=== PATIENT | male | born 1945 | race African-American/Black ===

== ENCOUNTER 2017-09-24 06:02 | Emergency (ER) | payer MEDICARE, OTHER ==
[~2017-09-24] VITALS: Ht 182.9 cm; Wt 115.0 kg
[~2017-09-24 06:02] MED LIST: AMLO-512 PO; ASPI81 PO; ATOR40TA28 PO; CARV25 PO; FISH OIL PO; ISOS30TA6 PO; KDUR10 PO; LORA1TAB3 PO; LOSA50TA37 PO; PANT40TA25 PO; PRAS10TA6 PO; SPIR50 PO
[2017-09-24 06:14] VITALS: BP 149/77
[2017-09-24] MEDS ORDERED: CHOL50004 PO (06:19)
[2017-09-24] MEDS ORDERED: GLIP2.5T17 PO (06:19)
[2017-09-24] MEDS ORDERED: FERR-89 PO (06:19)
[2017-09-24] MEDS ORDERED: FURO40TA5 PO (06:19)
[2017-09-24] MEDS ORDERED: MAGN250T9 PO (06:19)
[2017-09-24 06:30] LABS: GLUCOSE,POINT OF CARE 150 MG/DL (70-110)
[2017-09-24] MEDS ORDERED: SILVER SULFADIAZINE 1% 25 GM CREAM TP ONE (09:15)
== END 2017-09-24 09:34 | disposition home or self-care (01) ==
LOC: EMS 06:03
DX: L98.9 Disorder of the skin and subcutaneous tissue, unspecified (principal); I10 Essential (primary) hypertension; E11.9 Type 2 diabetes mellitus without complications; E78.00 Pure hypercholesterolemia, unspecified
CPT/HCPCS: 99283

== ENCOUNTER 2018-01-09 09:24 | Emergency (ER) | payer MEDICARE, OTHER ==
[~2018-01-09] VITALS: Ht 182.9 cm; Wt 115.0 kg
[~2018-01-09 09:24] MED LIST changes: -AMLO-512 PO; +CHOL50004 PO; +FERR-89 PO; +FURO40TA5 PO; +GLIP2.5T17 PO; +LOSA50TA25 PO; -LOSA50TA37 PO; +MAGN250T9 PO; -PRAS10TA6 PO; -SPIR50 PO
[2018-01-09 09:35] LABS: GLUCOSE,POINT OF CARE 117 MG/DL (70-110)
[2018-01-09 09:42] VITALS: BP 157/80
== END 2018-01-09 10:52 | disposition home or self-care (01) ==
LOC: EMS 09:25
DX: J40 Bronchitis, not specified as acute or chronic (principal); I10 Essential (primary) hypertension; E11.9 Type 2 diabetes mellitus without complications; E78.00 Pure hypercholesterolemia, unspecified; G47.30 Sleep apnea, unspecified; Z79.82 Long term (current) use of aspirin; Z79.84 Long term (current) use of oral hypoglycemic drugs; Z79.899 Other long term (current) drug therapy
CPT/HCPCS: 99284

== ENCOUNTER 2018-01-12 08:37 | Emergency (ER) | payer MEDICARE, OTHER ==
[~2018-01-12] VITALS: Ht 182.9 cm; Wt 115.5 kg
[2018-01-12 08:54] LABS: GLUCOSE,POINT OF CARE 118 MG/DL (70-110)
[2018-01-12] MEDS ORDERED: IPRATROPIUM BROMIDE 0.5 MG/2.5 ML NEB SOLUTION NEB ONE (09:45)
[2018-01-12] MEDS ORDERED: ALBUTEROL SULFATE 2.5 MG/0.5 ML NEB SOLUTION NEB ONE (09:45)
[2018-01-12] MEDS ORDERED: FOLI1TAB15 PO (10:03)
[2018-01-12] MEDS ORDERED: 0.9% SODIUM CHLORIDE 5 ML NEB SOLUTION NEB ONE (10:03)
[2018-01-12] MEDS ORDERED: TAMS-1 PO (10:03)
[2018-01-12] MEDS ORDERED: TIOT185 IH (10:03)
[2018-01-12] MEDS ORDERED: POLY238P2 PO (10:03)
[2018-01-12] MEDS ORDERED: FINA1TAB17 PO (10:03)
[2018-01-12] MEDS ORDERED: PARO10OR3 PO (10:03)
[2018-01-12 10:17] LABS: BASOPHILS % (AUTO) 0.7 % (0.0-2.0); EOSINOPHILS % (AUTO) 1.7 % (1.0-6.0); HEMATOCRIT 30.3 % (41-53); HEMOGLOBIN 9.5 g/dL (13.5-17.5); LYMPHOCYTES # (AUTO) 0.9 K/uL (1.0-4.8); LYMPHOCYTES % (AUTO) 15.5 % (22.0-44.0); MEAN CORPUSCULAR HEMOGLOBIN 27.6 pg (26.0-34.0); MEAN CORPUSCULAR HGB CONC 31.5 G/dL (31.0-37.0); MEAN CORPUSCULAR VOLUME 88 fL (80-100); MONOCYTES # (AUTO) 0.5 K/uL (0.1-1.0); NEUTROPHILS # (AUTO) 4.1 K/uL (1.8-7.7); NEUTROPHILS % (AUTO) 73.1 % (40.0-70.0); PLATELET COUNT (AUTO) 174 K/uL (150-450); RED BLOOD CELL COUNT(AUTO) 3.45 MIL/uL (4.50-5.90); RED CELL DISTRIBUTION WIDTH 19.2 % (11.5-14.5)
[2018-01-12 10:20] LABS: APPEARANCE,URINE CLEAR (CLEAR); BILIRUBIN,URINE NEGATIVE (NEGATIVE); GLUCOSE, URINE (UA) NEGATIVE (NEGATIVE); KETONES,URINE NEGATIVE (NEGATIVE); LEUKOCYTE ESTERASE ,URINE NEGATIVE (NEGATIVE); NITRATE,URINE NEGATIVE (NEGATIVE); OCCULT BLOOD,URINE NEGATIVE (NEGATIVE); PROTEIN,URINE NEGATIVE (NEGATIVE)
[2018-01-12 10:27] LABS: ANION GAP 6 mmol/L (8-16); CALCIUM, TOTAL 9.1 mg/dL (8.8-10.5); CARBON DIOXIDE 28 mmol/L (22-29); CHLORIDE 107 mmol/L (98-107); GLOMERULAR FILTR. RATE CALC > 60 mL/min (>60); GLUCOSE,RANDOM 120 mg/dL (70-110); POTASSIUM 3.7 mmol/L (3.5-5.1); SODIUM SERUM 141 mmol/L (136-145); UREA NITROGEN, BLOOD 10 mg/dL (7-18)
[2018-01-12 10:47] LABS: B-TYPE NATRIURETIC PEPTIDE 29 pg/mL (0-100)
[2018-01-12 10:51] LABS: ALANINE AMINOTRANSFERASE 28 U/L (12-78); ALKALINE PHOSPHATASE 105 U/L (46-116); ASPARTATE AMINOTRANSFERASE 22 U/L (15-37); BILIRUBIN,TOTAL 0.9 mg/dL (0.1-1.0); CREATINE KINASE, TOTAL ONLY 167 U/L (39-308); TOTAL PROTEIN, SERUM 6.4 g/dL (6.4-8.2)
[2018-01-12 12:13] VITALS: BP 117/65
== END 2018-01-12 12:21 | disposition home or self-care (01) ==
LOC: EMS 08:39
DX: J40 Bronchitis, not specified as acute or chronic (principal); D64.9 Anemia, unspecified; E11.9 Type 2 diabetes mellitus without complications; E78.00 Pure hypercholesterolemia, unspecified; I10 Essential (primary) hypertension; I25.2 Old myocardial infarction; Z79.82 Long term (current) use of aspirin
CPT/HCPCS: 93005; 99285

== ENCOUNTER 2018-03-03 01:43 | Emergency (ER) | payer MEDICARE, OTHER ==
[~2018-03-03] VITALS: Ht 182.9 cm; Wt 113.6 kg
[2018-03-03 01:58] LABS: GLUCOSE,POINT OF CARE 161 MG/DL (70-110)
[2018-03-03] MEDS ORDERED: RIVA10 PO (01:58)
[2018-03-03] MEDS ORDERED: LIDOCAINE 2% 5 ML JELLY TP ONE (03:00)
[2018-03-03 03:50] VITALS: BP 140/69
== END 2018-03-03 04:04 | disposition home or self-care (01) ==
LOC: EMS 01:43
DX: R04.0 Epistaxis (principal); I10 Essential (primary) hypertension; E11.9 Type 2 diabetes mellitus without complications; E78.00 Pure hypercholesterolemia, unspecified; Z79.82 Long term (current) use of aspirin
CPT/HCPCS: 30901

== ENCOUNTER 2018-08-02 11:14 | Emergency (ER) | payer MEDICARE, OTHER ==
[~2018-08-02] VITALS: Ht 175.3 cm; Wt 77.3 kg
[~2018-08-02 11:14] MED LIST changes: -CHOL50004 PO; -ISOS30TA6 PO; -LOSA50TA25 PO; +LOSA50TA64 PO; -MAGN250T9 PO; +RIVA10 PO
[2018-08-02 11:30] LABS: GLUCOSE,POINT OF CARE 112 MG/DL (70-110)
[2018-08-02] MEDS ORDERED: IBUPROFEN 600 MG TABLET PO ONE (12:30)
[2018-08-02] MEDS ORDERED: POVIDONE-IODINE 10% 15 ML SOLUTION UD TP ONE (12:30)
[2018-08-02 12:37] VITALS: BP 149/70
[2018-08-02] MEDS ORDERED: BACITRACIN 0.9 GM PACKET OINTMENT TP ONE (12:45)
== END 2018-08-02 12:55 | disposition home or self-care (01) ==
LOC: EMS 11:14
DX: S81.012A Laceration without foreign body, left knee, initial encounter (principal); S51.012A Laceration without foreign body of left elbow, initial encounter; E11.9 Type 2 diabetes mellitus without complications; E78.00 Pure hypercholesterolemia, unspecified; I10 Essential (primary) hypertension; I25.2 Old myocardial infarction; Z79.84 Long term (current) use of oral hypoglycemic drugs; Z79.82 Long term (current) use of aspirin; Z79.899 Other long term (current) drug therapy; W19.XXXA Unspecified fall, initial encounter; Y93.53 Activity, golf; Y92.89 Other specified places as the place of occurrence of the external cause; Y99.8 Other external cause status

== ENCOUNTER 2018-09-16 17:20 | Emergency (ER) | payer MEDICARE, OTHER ==
[~2018-09-16] VITALS: Ht 185.4 cm; Wt 115.9 kg
[2018-09-16 18:29] LABS: GLUCOSE,POINT OF CARE 131 MG/DL (70-110)
[2018-09-16 21:44] VITALS: BP 145/74
== END 2018-09-16 21:48 | disposition home or self-care (01) ==
LOC: EMS 17:22
DX: J32.9 Chronic sinusitis, unspecified (principal); E11.9 Type 2 diabetes mellitus without complications; E78.00 Pure hypercholesterolemia, unspecified; I10 Essential (primary) hypertension; I25.2 Old myocardial infarction; G47.30 Sleep apnea, unspecified; Z86.711 Personal history of pulmonary embolism; Z79.82 Long term (current) use of aspirin; Z79.899 Other long term (current) drug therapy

== ENCOUNTER 2019-03-13 11:35 | Emergency (ER) | payer MEDICARE, OTHER ==
[~2019-03-13] VITALS: Ht 182.9 cm; Wt 109.1 kg
[~2019-03-13 11:35] MED LIST changes: +LORA-1000 PO; -LORA1TAB3 PO
[2019-03-13 12:24] VITALS: BP 135/72
== END 2019-03-13 12:55 | disposition home or self-care (01) ==
LOC: EMS 11:38
DX: S69.92XA Unspecified injury of left wrist, hand and finger(s), initial encounter (principal); E11.9 Type 2 diabetes mellitus without complications; E78.00 Pure hypercholesterolemia, unspecified; I10 Essential (primary) hypertension; I25.2 Old myocardial infarction; Z79.82 Long term (current) use of aspirin; W23.0XXA Caught, crushed, jammed, or pinched between moving objects, initial encounter; Y93.89 Activity, other specified; Y92.89 Other specified places as the place of occurrence of the external cause; Y99.8 Other external cause status

== ENCOUNTER 2019-07-11 13:37 | Emergency (ER) | payer MEDICARE, OTHER ==
[~2019-07-11] VITALS: Ht 182.9 cm; Wt 114.5 kg
[~2019-07-11 13:37] MED LIST changes: +ASPI-728 PO; -ASPI81 PO; +LOSA-88 PO; -LOSA50TA64 PO
[2019-07-11 15:52] VITALS: BP 138/84
== END 2019-07-11 15:53 | disposition home or self-care (01) ==
LOC: EMS 13:39
DX: S90.121A Contusion of right lesser toe(s) without damage to nail, initial encounter (principal); E11.9 Type 2 diabetes mellitus without complications; I10 Essential (primary) hypertension; E78.00 Pure hypercholesterolemia, unspecified; Z79.899 Other long term (current) drug therapy; W22.8XXA Striking against or struck by other objects, initial encounter; Y93.89 Activity, other specified; Y92.099 Unspecified place in other non-institutional residence as the place of occurrence of the external cause; Y99.8 Other external cause status

== ENCOUNTER 2020-01-07 15:04 | Emergency (ER) | payer MEDICARE, OTHER ==
[~2020-01-07] VITALS: Ht 182.9 cm; Wt 114.5 kg
[~2020-01-07 15:04] MED LIST changes: -KDUR10 PO; -LOSA-88 PO; +LOSA50TA37 PO; +PANT-31 PO; -PANT40TA25 PO; +POTA-92 PO
[2020-01-07 15:31] LABS: BASOPHILS % (AUTO) 0.8 % (0.0-2.0); EOSINOPHILS % (AUTO) 0.7 % (1.0-6.0); HEMATOCRIT 35.5 % (41-53); HEMOGLOBIN 11.3 g/dL (13.5-17.5); LYMPHOCYTES # (AUTO) 1.1 K/uL (1.0-4.8); LYMPHOCYTES % (AUTO) 16.3 % (22.0-44.0); MEAN CORPUSCULAR HEMOGLOBIN 28.5 pg (26.0-34.0); MEAN CORPUSCULAR HGB CONC 31.8 G/dL (31.0-37.0); MEAN CORPUSCULAR VOLUME 90 fL (80-100); MONOCYTES # (AUTO) 0.5 K/uL (0.1-1.0); MONOCYTES % (AUTO) 7.1 % (2.0-9.0); NEUTROPHILS # (AUTO) 5.1 K/uL (1.8-7.7); NEUTROPHILS % (AUTO) 75.1 % (40.0-70.0); PLATELET COUNT (AUTO) 159 K/uL (150-450); RED BLOOD CELL COUNT(AUTO) 3.96 MIL/uL (4.50-5.90); RED CELL DISTRIBUTION WIDTH 18.6 % (11.5-14.5)
[2020-01-07 15:48] LABS: ANION GAP 9 mmol/L (8-16); CALCIUM, TOTAL 9.5 mg/dL (8.8-10.5); CARBON DIOXIDE 28 mmol/L (22-29); CHLORIDE 104 mmol/L (98-107); GLOMERULAR FILTR. RATE CALC > 60 mL/min (>60); GLUCOSE,RANDOM 218 mg/dL (70-110); POTASSIUM 4.5 mmol/L (3.5-5.1); SODIUM SERUM 141 mmol/L (136-145); UREA NITROGEN, BLOOD 11 mg/dL (7-18)
[2020-01-07 15:54] LABS: ALANINE AMINOTRANSFERASE 27 U/L (12-78); ALBUMIN 3.5 g/dL (3.4-5.0); ALKALINE PHOSPHATASE 91 U/L (46-116); ASPARTATE AMINOTRANSFERASE 20 U/L (15-37); BILIRUBIN,TOTAL 1.5 mg/dL (0.1-1.0); LIPASE 76 U/L (73-393); TOTAL PROTEIN, SERUM 6.7 g/dL (6.4-8.2)
[2020-01-07 17:13] LABS: GLUCOSE,POINT OF CARE 198 MG/DL (70-110)
[2020-01-07 17:20] VITALS: BP 124/72
== END 2020-01-07 17:46 | disposition home or self-care (01) ==
LOC: EMS 15:04
DX: R10.9 Unspecified abdominal pain (principal); R11.0 Nausea; E11.9 Type 2 diabetes mellitus without complications; E78.00 Pure hypercholesterolemia, unspecified; I10 Essential (primary) hypertension; I25.2 Old myocardial infarction; Z79.82 Long term (current) use of aspirin

== ENCOUNTER 2020-01-13 10:52 | Emergency (ER) | payer MEDICARE, OTHER ==
[~2020-01-13] VITALS: Ht 182.9 cm; Wt 116.8 kg
[2020-01-13 14:21] VITALS: BP 138/67
== END 2020-01-13 14:25 | disposition home or self-care (01) ==
LOC: EMS 10:56
DX: S80.822A Blister (nonthermal), left lower leg, initial encounter (principal); E11.9 Type 2 diabetes mellitus without complications; E78.00 Pure hypercholesterolemia, unspecified; I10 Essential (primary) hypertension; I25.2 Old myocardial infarction; X58.XXXA Exposure to other specified factors, initial encounter; Y93.89 Activity, other specified; Y92.89 Other specified places as the place of occurrence of the external cause; Y99.8 Other external cause status

== ENCOUNTER 2020-02-17 14:34 | Emergency (ER) | payer MEDICARE, OTHER ==
[~2020-02-17] VITALS: Ht 182.9 cm; Wt 109.1 kg
[2020-02-17 15:45] VITALS: BP 144/87
== END 2020-02-17 15:46 | disposition home or self-care (01) ==
LOC: EMS 14:34
DX: H43.391 Other vitreous opacities, right eye (principal); E11.9 Type 2 diabetes mellitus without complications; E78.00 Pure hypercholesterolemia, unspecified; I10 Essential (primary) hypertension; I25.2 Old myocardial infarction
CPT/HCPCS: Z7502

== ENCOUNTER 2020-03-30 06:57 | Emergency (ER) | payer MEDICARE, OTHER ==
[~2020-03-30] VITALS: Ht 182.9 cm; Wt 109.1 kg
[2020-03-30 07:58] VITALS: BP 158/71
== END 2020-03-30 08:00 | disposition home or self-care (01) ==
LOC: EMS 06:58
DX: S81.801A Unspecified open wound, right lower leg, initial encounter (principal); I10 Essential (primary) hypertension; I25.2 Old myocardial infarction; E11.9 Type 2 diabetes mellitus without complications; E78.00 Pure hypercholesterolemia, unspecified; G47.30 Sleep apnea, unspecified; Z79.899 Other long term (current) drug therapy; W26.8XXA Contact with other sharp object(s), not elsewhere classified, initial encounter; Y93.89 Activity, other specified; Y92.89 Other specified places as the place of occurrence of the external cause; Y99.8 Other external cause status

== ENCOUNTER 2020-04-27 14:24 | Emergency (ER) | payer MEDICARE, OTHER ==
[~2020-04-27] VITALS: Ht 172.7 cm; Wt 77.3 kg
[2020-04-27 15:39] VITALS: BP 130/80
== END 2020-04-27 15:42 | disposition home or self-care (01) ==
LOC: EMS 14:29
DX: R13.10 Dysphagia, unspecified (principal); E11.9 Type 2 diabetes mellitus without complications; E78.00 Pure hypercholesterolemia, unspecified; I10 Essential (primary) hypertension; I25.2 Old myocardial infarction; Z79.82 Long term (current) use of aspirin
CPT/HCPCS: Z7502

== ENCOUNTER 2020-06-13 09:34 | Emergency (ER) | payer MEDICARE, OTHER ==
[~2020-06-13] VITALS: Ht 175.3 cm; Wt 109.1 kg
[~2020-06-13 09:34] MED LIST changes: +ASPI-1450 PO; -ASPI-728 PO
[2020-06-13 10:40] LABS: BASOPHILS % (AUTO) 0.5 % (0.0-2.0); EOSINOPHILS % (AUTO) 0.9 % (1.0-6.0); HEMATOCRIT 32.1 % (41-53); HEMOGLOBIN 10.3 g/dL (13.5-17.5); LYMPHOCYTES # (AUTO) 0.6 K/uL (1.0-4.8); LYMPHOCYTES % (AUTO) 10.5 % (22.0-44.0); MEAN CORPUSCULAR HEMOGLOBIN 28.4 pg (26.0-34.0); MEAN CORPUSCULAR VOLUME 89 fL (80-100); MONOCYTES # (AUTO) 0.5 K/uL (0.1-1.0); MONOCYTES % (AUTO) 9.8 % (2.0-9.0); NEUTROPHILS # (AUTO) 4.1 K/uL (1.8-7.7); NEUTROPHILS % (AUTO) 78.3 % (40.0-70.0); PLATELET COUNT (AUTO) 166 K/uL (150-450); RED BLOOD CELL COUNT(AUTO) 3.61 MIL/uL (4.50-5.90); RED CELL DISTRIBUTION WIDTH 17.5 % (11.5-14.5)
[2020-06-13 10:49] LABS: ANION GAP 8 mmol/L (8-16); CALCIUM, TOTAL 9.3 mg/dL (8.8-10.5); CARBON DIOXIDE 28 mmol/L (22-29); CHLORIDE 106 mmol/L (98-107); CREATININE 0.96 mg/dL (0.60-1.30); GLUCOSE,RANDOM 176 mg/dL (70-110); SODIUM SERUM 142 mmol/L (136-145); UREA NITROGEN, BLOOD 12 mg/dL (7-18)
[2020-06-13 10:50] LABS: GLOMERULAR FILTR. RATE CALC > 60 mL/min (>60)
[2020-06-13 10:55] LABS: ALANINE AMINOTRANSFERASE 23 U/L (12-78); ALKALINE PHOSPHATASE 96 U/L (46-116); ASPARTATE AMINOTRANSFERASE 16 U/L (15-37); BILIRUBIN,TOTAL 1.1 mg/dL (0.1-1.0); TOTAL PROTEIN, SERUM 6.4 g/dL (6.4-8.2)
[2020-06-13 11:00] LABS: B-TYPE NATRIURETIC PEPTIDE 27 pg/mL (0-100)
[2020-06-13 11:05] LABS: INR 1.2 (0.9-1.1); PROTHROMBIN TIME 12.9 SEC (9.4-11.6)
[2020-06-13 11:45] VITALS: BP 122/67
== END 2020-06-13 12:11 | disposition home or self-care (01) ==
LOC: EMS 09:44
DX: R60.0 Localized edema (principal); E78.00 Pure hypercholesterolemia, unspecified; I10 Essential (primary) hypertension; E11.65 Type 2 diabetes mellitus with hyperglycemia; D64.9 Anemia, unspecified
CPT/HCPCS: 93005; 93971; 99285

== ENCOUNTER 2020-08-20 01:48 | Emergency (ER) | payer MEDICARE, OTHER ==
[~2020-08-20] VITALS: Ht 182.9 cm; Wt 100.9 kg
[2020-08-20] MEDS ORDERED: OXYMETAZOLINE HCL 0.05% 15 ML NASAL SPRAY NASAL ONE (04:00)
[2020-08-20] MEDS ORDERED: SILVER NITRATE APPLICATOR 1 EA STICK TP ONE (04:00)
[2020-08-20 04:30] VITALS: BP 135/84
== END 2020-08-20 05:32 | disposition home or self-care (01) ==
LOC: EMS 01:52
DX: R04.0 Epistaxis (principal); I25.2 Old myocardial infarction; E78.00 Pure hypercholesterolemia, unspecified; E11.9 Type 2 diabetes mellitus without complications
CPT/HCPCS: 30901; 99282; 99284; Z7502; Z7610

== ENCOUNTER 2020-11-21 11:37 | Emergency (ER) | payer MEDICARE, OTHER ==
[~2020-11-21] VITALS: Ht 182.9 cm; Wt 98.6 kg
[2020-11-21 11:44] VITALS: BP 133/62
== END 2020-11-21 12:48 | disposition home or self-care (01) ==
LOC: EMS 11:37
DX: S40.022A Contusion of left upper arm, initial encounter (principal); S40.021A Contusion of right upper arm, initial encounter; S80.12XA Contusion of left lower leg, initial encounter; S80.11XA Contusion of right lower leg, initial encounter; T45.515A Adverse effect of anticoagulants, initial encounter; E11.9 Type 2 diabetes mellitus without complications; E78.00 Pure hypercholesterolemia, unspecified; I10 Essential (primary) hypertension; I25.2 Old myocardial infarction; Z79.82 Long term (current) use of aspirin; X58.XXXA Exposure to other specified factors, initial encounter; Y93.89 Activity, other specified; Y92.89 Other specified places as the place of occurrence of the external cause; Y99.8 Other external cause status
CPT/HCPCS: 99281; Z7502

== ENCOUNTER 2021-02-23 14:27 | Emergency (ER) | payer MEDICARE, OTHER ==
[~2021-02-23] VITALS: Ht 182.9 cm; Wt 91.4 kg
[~2021-02-23 14:27] MED LIST changes: -RIVA10 PO; +RIVA10TA PO
[2021-02-23 16:27] VITALS: BP 130/75
== END 2021-02-23 16:28 | disposition home or self-care (01) ==
LOC: EMS 14:32
DX: K59.00 Constipation, unspecified (principal); E11.9 Type 2 diabetes mellitus without complications; E78.00 Pure hypercholesterolemia, unspecified; I10 Essential (primary) hypertension
CPT/HCPCS: 74018; 99283

== ENCOUNTER 2021-05-19 10:21 | Emergency (ER) | payer MEDICARE, OTHER ==
[~2021-05-19] VITALS: Ht 185.4 cm; Wt 86.4 kg
[~2021-05-19 10:21] MED LIST changes: +LOSA-382 PO; -LOSA50TA37 PO
[2021-05-19 14:27] VITALS: BP 127/63
== END 2021-05-19 15:18 | disposition home or self-care (01) ==
LOC: EMS 10:39
DX: R51.9 Headache, unspecified (principal); E11.9 Type 2 diabetes mellitus without complications; I10 Essential (primary) hypertension; E78.00 Pure hypercholesterolemia, unspecified; Z79.82 Long term (current) use of aspirin; Z79.899 Other long term (current) drug therapy
CPT/HCPCS: 82962; 99282